=== PATIENT | male | born 1945 | race Caucasian/White ===

== ENCOUNTER 2021-12-05 12:06 | Outpatient (CLI) | payer MEDICARE, MEDICAID, SELFPAY ==
[2021-12-05 12:14] VITALS: BP 114/72; PULSE 61; RESP 20; TEMP 36.7; O2SAT 97; BMI 28.2
[2021-12-05 13:10] VITALS: BP 110/76; PULSE 53; RESP 18; TEMP 36.7; O2SAT 96
[2021-12-05 14:07] VITALS: BP 105/70; PULSE 60; RESP 17; TEMP 36.9; O2SAT 99
== END 2021-12-05 12:07 | disposition home or self-care (01) ==
LOC: OPS 12:12
PROVIDERS: PCP Family Medicine; Visit Provider Nurse Practitioner Family
DX: U07.1 COVID-19 (principal)
CPT/HCPCS: 96365

== ENCOUNTER → 2023-01-29 08:57 | Outpatient (BNVA) | payer MEDICARE, MEDICAID, SELFPAY | PROVIDERS: PCP Family Medicine; Visit Provider Podiatrist Foot & Ankle Surgery | DX: I73.9 Peripheral vascular disease, unspecified (principal); L60.3 Nail dystrophy; E11.42 Type 2 diabetes mellitus with diabetic polyneuropathy | CPT/HCPCS: 99203 ==

== ENCOUNTER → 2023-04-30 08:59 | Outpatient (BNVA) | payer MEDICARE, MEDICAID, SELFPAY | PROVIDERS: PCP Family Medicine; Visit Provider Podiatrist Foot & Ankle Surgery | DX: I73.9 Peripheral vascular disease, unspecified (principal); L60.3 Nail dystrophy; E11.42 Type 2 diabetes mellitus with diabetic polyneuropathy | CPT/HCPCS: 11721 ==

== ENCOUNTER → 2023-06-26 08:37 | Outpatient (BNVA) | payer MEDICARE, MEDICAID, SELFPAY | PROVIDERS: PCP Family Medicine; Visit Provider Specialist | DX: G24.01 Drug induced subacute dyskinesia; G81.94 Hemiplegia, unspecified affecting left nondominant side; F20.9 Schizophrenia, unspecified; F03.90 Unspecified dementia, unspecified severity, without behavioral disturbance, psychotic disturbance, mood disturbance, and anxiety; E11.42 Type 2 diabetes mellitus with diabetic polyneuropathy; R47.1 Dysarthria and anarthria; R26.89 Other abnormalities of gait and mobility | CPT/HCPCS: 99204 ==

== ENCOUNTER 2023-07-15 08:17 | Outpatient (CLI) | payer MEDICARE, MEDICAID, SELFPAY ==
--- NOTE | 2023-07-15 08:24 | CT_ITS ---
WS: [id number] CT HEAD TECHNIQUE: Noncontrast CT of the head obtained from the skullbase to the vertex. CLINICAL INFORMATION: SCHIZOPHRENIA/DRUG INDUCED SUBACUTE DYSKINESIA COMPARISON: 2019 DLP: 1196.[address] scans at [facility] use at least one of these dose optimization techniques: automated e xposure control; mA and/or kV adjustment per patient size (includes targeted exams where dose is matc hed to clinical indication); or iterative reconstruction. FINDINGS: No evidence of intracranial hemorrhage or mass effect. Ventricular system and basal cisterns are torrez nt. Moderate small vessel changes with moderate parenchymal volume loss. This has progressed compared to 2019. No extra-axial fluid collections. Extra-axial lesion at the LEFT parietal vertex measuring approximately 1.6 x 2.1 cm with mild associa rocky indentation on the underlying brain parenchyma suspicious for meningioma. This slightly abuts the sagittal sinus. This appears relatively stable compared to 2019. This could be further evaluated wit h MRI without and with gadolinium Mild mucosal thickening in the ethmoid air cells. Mastoid air cells are well aerated. Normal posterio r nasopharynx. IMPRESSION: 1. No evidence of intracranial hemorrhage or mass effect. 2. Moderate small vessel changes. Moderate parenchymal volume loss progressed compared to 2019 3. Suspected meningioma at the LEFT parietal vertex measuring 1.6 x 2.0 cm described above. 4. Intracranial vascular calcification.
== END 2023-07-15 08:18 | disposition home or self-care (01) ==
PROVIDERS: PCP Family Medicine; Visit Provider Internal Medicine
DX: F20.9 Schizophrenia, unspecified (principal); G24.9 Dystonia, unspecified
CPT/HCPCS: 70450

== ENCOUNTER → 2023-07-30 08:42 | Outpatient (BNVA) | payer MEDICARE, MEDICAID, SELFPAY | PROVIDERS: PCP Family Medicine; Visit Provider Podiatrist Foot & Ankle Surgery | DX: E11.42 Type 2 diabetes mellitus with diabetic polyneuropathy (principal); L60.3 Nail dystrophy; I73.9 Peripheral vascular disease, unspecified | CPT/HCPCS: 11721 ==

== ENCOUNTER 2023-09-13 15:08 | Emergency (ER) | payer MEDICARE, MEDICAID, SELFPAY ==
[2023-09-13 15:11] VITALS: BMI 28.2
[2023-09-13 15:21] VITALS: BP 122/67; PULSE 53; RESP 16; TEMP 36.8; O2SAT 99
--- NOTE | 2023-09-13 15:50 | XRR_ITS ---
PROCEDURE INFORMATION: Exam: XR Chest Exam date and time: 09/13/2023 3:57 PM Age: 77 years old Clinical indication: Shortness of breath; Additional info: SOB TECHNIQUE: Imaging protocol: Radiologic exam of the chest. Views: 1 view. COMPARISON: CR XR chest 1V [id number] 03/07/2019 12:27 AM FINDINGS: Lungs: No consolidative pulmonary infiltrates are noted. Pleural spaces: No pleural effusion. No pneumothorax. Heart/Mediastinum: No cardiomegaly noted. Calcified hilar and mediastinal lymph nodes consistent with old granulomatous disease. Bones/joints: Degenerative thoracic spine changes are noted. XR/XR chest 1V portable [id number] IMPRESSION: 1. No acute abnormality demonstrated. 2. Findings of old granulomatous disease are identified. 3. There is no interval change from the prior examination.
[2023-09-13 15:59] LABS: Basophils # 0.1 10^3/uL (0.0-0.1); Basophils % 0.7 %; Eosinophils # 0.1 10^3/uL (0.0-0.8); Eosinophils % 0.9 %; Hematocrit 41.6 % (37-53); Lymphocytes # 1.7 10^3/uL (0.8-4.8); Lymphocytes % 21.5 %; Mean Corpuscular HGB Conc 32.7 g/dL (30-55); Mean Corpuscular Hemoglobin 28.8 pg (27-33); Mean Corpuscular Volume 88.1 fl (82-101); Mean Platelet Volume 11.9 fL (7.4-10.4); Monocytes # 0.9 10^3/uL (0.2-0.9); Monocytes % 11.4 %; Neutrophils # 4.99 10^3/uL (1.8-7.7); Neutrophils % 65.1 %; Nucleated Red Blood Cells % 0 %; Platelet Count 172 10^3/cmm (157-399); Red Blood Count 4.72 10^6/uL (3.85-5.65); Red Cell Distribution Width 13.6 % (12.1-15.1); White Blood Count 7.66 10^3/uL (3.29-11.43)
--- NOTE | 2023-09-13 16:13 | ECG_ITS ---
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 Measurements Intervals [place] Rate: 53 P: 0 VT: 0 QRS: 56 QRSD: 94 T: 45 QT: 449 QTc: 422 Interpretive Statements SUPRAVENTRICULAR BRADYCARDIA LOW QRS VOLTAGE IN PRECORDIAL LEADS [QRS DEFLECTION < 1.0 mV IN CHEST LEADS] Compared to ECG 03/06/2019 19:40:21 Low QRS voltage now present Sinus rhythm no longer present Electronically Signed On 09-13-2023 23:08:25 CDT by Pete Rizvi M.D. [id number]
[2023-09-13 16:19] LABS: INR 1.17 (0.8-1.2); Partial Thromboplastin Time 33.6 SECONDS (23.9-36.7)
[2023-09-13 16:21] LABS: ABG PCO2 42.3 mmHg (35-45); ABG PH Result 7.39 (7.35-7.45); Arterial Blood Gas Hematocrit 40.6 % (42-52); Base Excess ABG 0.7 mmol/L (-2.0-2.0); Blood Gas Allen Test Pos; Blood Gas Operator Identificat CAK; Blood Gas Sample Site Radial, left; Blood Gas Sample Type Arterial; HCO3 ABG 25.8 mmol/L (22-26); Oxygen Device NC
[2023-09-13 16:24] VITALS: BP 122/67; PULSE 54; RESP 22; O2SAT 98
--- NOTE | 2023-09-13 16:32 | W.ED.SOB ---
HPI - SOB/Dyspnea General: Chief Complaint: Shortness of Breath/Dyspnea Stated Complaint: covid + Time Seen by Provider: 09/13/23 15:24 History of Present Illness: HPI Narrative: 77-year-old male presents the emergency department chief complaint of generalized confusion with increased shortness of breath. He presents from the [facility] to the ER for further assessment and management. Patient is a longstanding history of lung issues you are a normally requires oxygen mentation via nasal cannula. Patient apparently was found to be post-COVID positive today in which she was sent in for further evaluation patient does have a known history of previous stroke with left-sided deficits as well as schizophrenia. As noted per his documentation provided with him the patient upon direct questioning does not remark any pains or discomfort reports no increased shortness of breath or palpitations with no other associated symptoms however on exam patient does appear to be a very poor historian. Associated symptoms: Deny abdominal pain, chest pain, extremity pain, fever(s), nausea, palpitations or vomiting Review of Systems General: Reports: 10 or more systems reviewed and unremarkable except in HPI and below Const: Denies: fever(s) or chills Eyes: Denies: change in vision or blurry vision Card: Denies: chest pain or palpitations Resp: Denies: productive cough GI: Denies: abdominal pain, nausea or vomiting : Denies: flank pain Musc: Denies: extremity pain or extremity swelling Skin/Breast: Denies: rash or pruritus Neuro: Denies: headache(s) Psych: Denies: anxiety or depression Pernell/Lymph: Denies: easy bleeding All/Imm: Denies: urticaria, throat swelling or facial swelling Course Vital Signs: Vital signs: Vital Signs Temperature 98.2 F 09/13/23 15:21 Pulse Rate 65 09/13/23 17:42 Respiratory Rate 22 H 09/13/23 17:42 Blood Pressure 133/85 09/13/23 17:42 Pulse Oximetry 97 09/13/23 17:42 Oxygen Delivery Me thod Nasal Cannula 09/13/23 15:21 Oxygen Flow Rate 2 09/13/23 15:21 MDM - SOB/Dyspnea Medical Decision Making Due to patient's symptoms and condition lab work and imaging will be obtained we will continue to follow. Patient's lab work and imaging came back reassuring no obvious signs suggestive of heart failure or pneumonia no additional oxygen requirement was also appreciated which patient appears to be at his baseline confusion with no additional focal neurodeficits patient was able to ambulate with which is at his baseline which is oxygenation continue to remain in the mid 90s in which patient did not get progressively dyspneic his heart enzymes are normal we will be treating him with Paxlofrida outpatient as well as steroids and nebs advised further follow-up with primary care in 2 to 3 days advised to try to isolate the patient with next 5 days in the patient facility was advised to bring the patient in if any of his symptoms persist or worse. Lab Data 09/13/23 15:00 09/13/23 15:00 Labs/Radiology: Radiology Impressions Chest X-Ray 09/13/23 15:50 IMPRESSION: 1. No acute abnormality demonstrated. 2. Findings of old granulomatous disease are identified. 3. There is no interval change from the prior examination. Laboratory Results WBC 7.66 10^3/uL (3.29-11.43) 09/13/23 15:00 RBC 4.72 10^6/uL (3.85-5.65) 09/13/23 15:00 Hgb 13.60 g/dL (11.27-16.99) 09/13/23 15:00 Hct 41.6 % (37-53) 09/13/23 15:00 MCV 88.1 fl (82-101) 09/13/23 15:00 MCH 28.8 pg (27-33) 09/13/23 15:00 MCHC 32.7 g/dL (30-55) 09/13/23 15:00 RDW 13.6 % (12.1-15.1) 09/13/23 15:00 Plt Count 172 10^3/cmm (157-399) 09/13/23 15:00 MPV 11.9 fL (7.4-10.4) H 09/13/23 15:00 Neut % (Auto) 65.1 % 09/13/23 15:00 Lymph % (Auto) 21.5 % 09/13/23 15:00 [place] % (Auto) 11.4 % 09/13/23 15:00 Eos % (Auto) 0.9 % 09/13/23 15:00 Baso % (Auto) 0.7 % 09/13/23 15:00 Neut # (Auto) 4.99 10^3/uL (1.8-7.7) 09/13/23 15:00 Lymph # (Auto) 1.7 10^3/uL (0.8-4.8) 09/13/23 15:00 [place] # (Auto) 0.9 10^3/uL (0.2-0.9) 09/13/23 15:00 Eos # (Auto) 0.1 10^3/uL (0.0-0.8) 09/13/23 15:00 Baso # (Auto) 0.1 10^3/uL (0.0-0.1) 09/13/23 15:00 Nucleated RBC % (auto) 0 % 09/13/23 15:00 Nucleated RBCs # 0.0 /100WBC 09/13/23 15:00 PT 15.30 SECONDS (12.1-14.9) H 09/13/23 15:00 INR 1.17 (0.8-1.2) 09/13/23 15:00 APTT 33.6 SECONDS (23.9-36.7) 09/13/23 15:00 Specimen Type Arterial 09/13/23 16:10 Sample Site Radial, left 09/13/23 16:10 ABG pH 7.39 (7.35-7.45) 09/13/23 16:10 ABG pCO2 42.3 mmHg (35-45) 09/13/23 16:10 ABG pO2 119.0 mmHg (80.0-100.0) H 09/13/23 16:10 ABG HCO3 25.8 mmol/L (22-26) 09/13/23 16:10 ABG Base Excess 0.7 mmol/L (-2.0-2.0) 09/13/23 16:10 Arvind Test Pos 09/13/23 16:10 Hematocrit 40.6 % (42-52) L 09/13/23 16:10 O2 Delivery Device Nc 09/13/23 16:10 O2 Liters/Min 2.0 % 09/13/23 16:10 FiO2 28.0 % 09/13/23 16:10 Laundry Equipment Operator ID Cak 09/13/23 16:10 Sodium 136 mmol/L (136-145) 09/13/23 15:00 Potassium 4.3 mmol/L (3.5-5.1) 09/13/23 15:00 Chloride 103 mmol/L (98-107) 09/13/23 15:00 Carbon Dioxide 24 mmol/L (22-29) 09/13/23 15:00 Anion Gap 13.3 (5-19) 09/13/23 15:00 BUN 15 mg/dL (8-23) 09/13/23 15:00 Creatinine 0.7 mg/dL (0.7-1.2) 09/13/23 15:00 GFR Calculation Not Reportable 09/13/23 15:00 Glucose 99 mg/dL (65-115) 09/13/23 15:00 Calculated Osmolality 283 mOsm/kg (285-295) L 09/13/23 15:00 Lactic Acid 1.1 mmol/L (0.5-2.2) 09/13/23 16:57 Calcium 8.4 mg/dL (8.5-10.5) L 09/13/23 15:00 Total Bilirubin 0.6 mg/dL (0.15-1.2) 09/13/23 15:00 AST 17 U/L (0-40) 09/13/23 15:00 ALT 7 U/L (0-41) 09/13/23 15:00 Alkaline Phosphatase 73 U/L (40-130) 09/13/23 15:00 C-Reactive Protein 33.3 mg/L (0.0-4.9) H 09/13/23 15:00 NT-Pro-B Natriuret Pep 697 pg/mL (0-450) H 09/13/23 15:00 Total Protein 5.6 g/dL (6.6-8.7) L 09/13/23 15:00 Albumin 3.1 g/dL (3.5-5.2) L 09/13/23 15:00 Globulin 2.5 g/dL (1.3-4.6) 09/13/23 15:00 All radiology interpretation(s) finalized by discharge Discharge Plan Discharge Patient Disposition: Home Clinical Impression: COVID, Breath shortness Condition: Stable Prescriptions: New Paxlovid 300 mg (150 mg x 2)-100 mg tablets,dose pack See Rx Instructions .ROUTE .COMPLEX Qty: 30 0RF Rx Instructions: take TWO 150 mg tablets of nirmatrelvir with ONE 100 mg tablet of ritonavir twice daily for 5 days prednisone 20 mg tablet 20 mg PO DAILY Qty: 7 0RF Ventolin HFA 90 mcg/actuation HFA aerosol inhaler 1 inh inhalation Q6H PRN (Reason: shortness of breath or wheezing) Qty: 6.7 0RF No Action Risperdal Consta 25 mg/2 mL suspension,extended rel recon IM propranolol 40 mg tablet PO atorvastatin 10 mg tablet PO divalproex 125 mg tablet,delayed release (DR/EC) PO Discharge Orders: Discharge ED (Routine); Ordered 09/13/23 Ordered By: Kurt Vargas Referrals: Miguel Kebede Jr, MD [Primary Care Provider] - 1-3 days Discharge Diet: Advance as tolerated Discharge Activity: Resume usual activity and Increase activity as tolerated Patient Instructions: Nirmatrelvir/Ritonavir (By mouth) (Paxlovid), COVID-19 (Coronavirus Disease 2019) (ED) Activity Restrictions/Additional Instructions: Please further follow-up with your primary care doctor in the next 2 to 3 days please try to self isolate as best as possible over the next 5 days from initiation of your symptoms in which please return the interim if any of your symptoms persist or worse Coding Level of Care Code ED [employer] for Dilan Lucia
[2023-09-13 16:38] LABS: Albumin Level 3.1 g/dL (3.5-5.2); Alkaline Phosphatase 73 U/L (40-130); Blood Urea Nitrogen 15 mg/dL (8-23); C Reactive Protein 33.3 mg/L (0.0-4.9); Calcium 8.4 mg/dL (8.5-10.5); Carbon Dioxide 24 mmol/L (22-29); Chloride 103 mmol/L (98-107); Globulin 2.5 g/dL (1.3-4.6); Glucose 99 mg/dL (65-115); NT Pro B Type Natriuretic Pept 697 pg/mL (0-450); Osmolality Calculated 283 mOsm/kg (285-295); Sodium 136 mmol/L (136-145); Total Bilirubin 0.6 mg/dL (0.15-1.2); Total Protein 5.6 g/dL (6.6-8.7)
[2023-09-13 16:40] LABS: Anion Gap 13.3 (5-19); Aspartate Amino Transferase 17 U/L (0-40); Potassium 4.3 mmol/L (3.5-5.1)
[2023-09-13 16:41] LABS: Alanine Aminotransferase 7 U/L (0-41)
[2023-09-13 17:29] LABS: Lactic Sepsis W/Reflex 1.1 mmol/L (0.5-2.2)
[2023-09-13 17:42] VITALS: BP 133/85; PULSE 65; RESP 22; O2SAT 97
[2023-09-13 19:31] VITALS: BP 117/54
== END 2023-09-13 19:40 | disposition home or self-care (01) ==
PROVIDERS: Emergency Provider Emergency Medicine; PCP Family Medicine
DX: U07.1 COVID-19 (principal)
CPT/HCPCS: 36415; 36600; 71045; 80053; 82803; 83605; 83880; 85025; 85610; 85730; 86140; 93005; 99285

== ENCOUNTER → 2023-10-09 10:18 | Outpatient (BNVA) | payer MEDICARE, MEDICAID, SELFPAY | PROVIDERS: PCP Family Medicine; Visit Provider Specialist | DX: G81.14 Spastic hemiplegia affecting left nondominant side (principal); G24.01 Drug induced subacute dyskinesia | CPT/HCPCS: 99214 ==

== ENCOUNTER → 2024-01-15 14:32 | Outpatient (BNVA) | payer MEDICARE, MEDICAID, SELFPAY | PROVIDERS: PCP Family Medicine; Visit Provider Specialist | DX: R29.90 Unspecified symptoms and signs involving the nervous system (principal); G81.14 Spastic hemiplegia affecting left nondominant side; G24.01 Drug induced subacute dyskinesia; F20.9 Schizophrenia, unspecified | CPT/HCPCS: 99214 ==

== ENCOUNTER 2025-02-26 05:57 | Emergency (ER) | payer MEDICARE, MEDICAID, SELFPAY ==
[2025-02-26] VITALS (13 sets, daily range): BP systolic 73–108; BP diastolic 43–55; PULSE 63–96; RESP 10–20; TEMP 36.8; O2SAT 91–97; BMI 25.7
--- NOTE | 2025-02-26 06:08 | ECG_ITS ---
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 Measurements Intervals [place] Rate: 94 P: 53 NE: 153 QRS: 58 QRSD: 94 T: 61 QT: 349 QTc: 437 Interpretive Statements SINUS RHYTHM LOW QRS VOLTAGE IN EXTREMITY LEADS [QRS DEFLECTION < 0.5 mV IN LIMB LEADS] Compared to ECG 09/13/2023 16:13:15 No significant changes Electronically Signed On 02-27-2025 18:16:50 CDT by Pete Rizvi M.D. [id number] [id number]
--- NOTE | 2025-02-26 06:08 | CTR_ITS ---
PROCEDURE INFORMATION: Exam: CT Head Without Contrast Exam date and time: 02/26/2025 6:16 AM Age: 79 years old Clinical indication: Altered mental status/memory loss; Additional info: Altered mental status, history of parkinson's, history of st TECHNIQUE: Imaging protocol: Computed tomography of the head without contrast. Radiation optimization: All CT scans at this facility use at least one of these dose optimization techniques: automated exposure control; mA and/or kV adjustment per patient size (includes targeted exams where dose is matched to clinical indication); or iterative reconstruction. COMPARISON: CT head wo con* [id number] 07/15/2023 8:37 AM RADIATION DOSE METRICS: Total DLP (mGy-cm): 1259.98 FINDINGS: Brain: No hemorrhage. Periventricular white matter lucency represents atherosclerotic encephalopathic changes. Cerebral ventricles: No ventriculomegaly. Ventricular prominence proportionate to the degree of atrophy observed. Paranasal sinuses: Visualized sinuses are unremarkable. No fluid levels. Mastoid air cells: Visualized mastoid air cells are well aerated. Bones: Unremarkable. No acute fracture. Soft tissues: Unremarkable. Other findings: No mass effect. CT/CT head wo con* [id number] IMPRESSION: No acute intracranial abnormality.
--- NOTE | 2025-02-26 06:08 | W.ED.SOB ---
HPI - SOB/Dyspnea General: Chief Complaint: Shortness of Breath/Dyspnea Stated Complaint: Poss Sepsis Time Seen by Provider: 02/26/25 05:58 History of Present Illness: HPI Narrative: 79-year-old male presents to the emergency room essentially the patient is obtunded he has no response to verbal or painful stimuli. Patient has a history of schizophrenia he also has a history of Parkinson's and a previous stroke. He has contractures and residual left-sided hemiparesis. Nursing on report was that he is altered this morning he usually is somewhat responsive and normally does speak. He normally is not on oxygen at the intermediate and is satting normal on room air at this time Related Data Home Medications ?Medication ?Instructions ?Recorded ?Confirmed acetaminophen 325 mg tablet 650 mg PO Q6H PRN Pain 02/26/25 02/26/25 amino acids-protein hydrolysate 15 30 ea PO TID 02/26/25 02/26/25 gram-101 kcal/30 mL oral liquid bisacodyl 10 mg rectal suppository 10 mg RI DAILY PRN Constipation 02/26/25 02/26/25 dextran 70-hypromellose eye drops 1 drp ophthalmic (eye) Q4H 02/26/25 02/26/25 magnesium hydroxide 400 mg/5 mL 30 ml PO DAILY PRN Constipation 02/26/25 02/26/25 oral suspension (Milk of Magnesia) menthol 4 % topical gel (Biofreeze 1 applic topical BID 02/26/25 02/26/25 (menthol)) polyethylene glycol 3350 17 17 g PO DAILY 02/26/25 02/26/25 gram/dose oral powder (Miralax) risperidone 1 mg tablet 1 mg PO BID 02/26/25 02/26/25 sennosides 8.6 mg-docusate sodium 1 tab-cap PO BID PRN Constipation 02/26/25 02/26/25 50 mg tablet (Stool Softener-Laxative) sodium phosphates 19 gram-7 118 ml RI DAILY PRN Constipation 02/26/25 02/26/25 gram/118 mL enema (Enema) Allergies Allergy/AdvReac Type Severity Reaction Status Date / Time No Known Allergies Allergy Verified 01/15/24 14:45 Review of Systems General: Reports: ROS unobtainable due to mental status [facility] ED PFSH: Medical History (Updated 02/26/25 @ 12:54 by Adam Vigil DO) Diabetic peripheral neuropathy associated with type 2 diabetes mellitus Dementia Spastic hemiparesis of left nondominant side Schizophrenia Peripheral arterial disease Left hemiparesis Tardive dyskinesia Physical Exam HENMT: COMMON NORMALS: normocephalic and atraumatic HEAD & SCALP: normocephalic and atraumatic Resp: COMMON NORMALS: normal respiratory effort, No retractions, No use of accessory muscles and clear to auscultation bilaterally AUSCULTATION: clear to auscultation bilaterally Cardio: COMMON NORMALS: regular rate, regular rhythm and No murmurs present (Cardio) RATE: regular rate RHYTHM: regular rhythm GI: COMMON NORMALS: Soft to palpation and No hepatosplenomegaly present AUSCULTATION: Yes normoactive bowel sounds PALPATION: Yes Soft to palpation, No Tenderness to palpation present (GI), No Guarding due to palpation present (GI) and Yes No hepatosplenomegaly present Extremity: COMMON NORMALS: normal to inspection, capillary refill normal, no clubbing, cyanosis or edema, no calf tenderness and no pedal edema Skin: COMMON NORMALS: no rashes or lesions noted GENERAL SKIN EXAM: no rashes or lesions noted Course Vital Signs: Vital signs: Vital Signs Temperature 98.3 F 02/26/25 06:10 Pulse Rate 63 02/26/25 12:00 Respiratory Rate 10 L 02/26/25 12:00 Blood Pressure 97/52 02/26/25 12:00 Pulse Oximetry 97 02/26/25 12:00 Oxygen Delivery Me thod Room Air 02/26/25 06:38 MDM - SOB/Dyspnea Medical Decision Making Patient responsive groans to noxious stimuli but no words. His sats are normal and his breathing is not compromised. His blood pressure did dip into the 70s and 80s systolic at times he was titrated on Levophed. He is already received a sepsis fluid bolus. He has been started on Levophed and we are titrating up. He is also been given antibiotics. There are no old cultures to guide antibiotic selection at this time so started on Zosyn. We do not have urology at our facility we discussed with Dr. Christopher urologist at [facility] they will accept patient on transfer Dr. Dr. Cordon the hospitalist. He will be transferred via EMS to ICU at [place]. Medical Records I reviewed the patient's medical records. Lab Data I reviewed the patient's lab results. 02/26/25 05:59 02/26/25 05:59 Labs/Radiology: Radiology Impressions Head CT 02/26/25 06:08 IMPRESSION: No acute intracranial abnormality. Abdomen/Pelvis CT 02/26/25 06:20 IMPRESSION: 1. 13 x 5 mm stone at the right ureteropelvic junction causes mild hydronephrosis. There are additional nonobstructive bilateral renal stones. 2. Findings suggesting mild enteritis or ileus. Laboratory Results WBC 13.89 10^3/uL (3.29-11.43) H 02/26/25 05:59 RBC 4.88 10^6/uL (3.85-5.65) 02/26/25 05:59 Hgb 13.90 g/dL (11.27-16.99) 02/26/25 05:59 Hct 42.8 % (37-53) 02/26/25 05:59 MCV 87.7 fl (82-101) 02/26/25 05:59 MCH 28.5 pg (27-33) 02/26/25 05:59 MCHC 32.5 g/dL (30-55) 02/26/25 05:59 RDW 13.9 % (12.1-15.1) 02/26/25 05:59 Plt Count 168 10^3/cmm (157-399) 02/26/25 05:59 MPV 12.4 fL (7.4-10.4) H 02/26/25 05:59 Neut % (Auto) 93.3 % 02/26/25 05:59 Lymph % (Auto) 2.6 % 02/26/25 05:59 [place] % (Auto) 3.2 % 02/26/25 05:59 Eos % (Auto) 0.0 % 02/26/25 05:59 Baso % (Auto) 0.3 % 02/26/25 05:59 Neut # (Auto) 12.97 10^3/uL (1.8-7.7) H 02/26/25 05:59 Lymph # (Auto) 0.4 10^3/uL (0.8-4.8) L 02/26/25 05:59 [place] # (Auto) 0.4 10^3/uL (0.2-0.9) 02/26/25 05:59 Eos # (Auto) 0.0 10^3/uL (0.0-0.8) 02/26/25 05:59 Baso # (Auto) 0.0 10^3/uL (0.0-0.1) 02/26/25 05:59 Nucleated RBC % (auto) 0 % 02/26/25 05:59 Nucleated RBCs # 0.0 /100WBC 02/26/25 05:59 Specimen Type Arterial 02/26/25 06:40 Sample Site Radial, right 02/26/25 06:40 ABG pH 7.45 (7.35-7.45) 02/26/25 06:40 ABG pCO2 37.4 mmHg (35-45) 02/26/25 06:40 ABG pO2 59.5 mmHg (80.0-100.0) L 02/26/25 06:40 ABG PO2/FiO2 Ratio 283 02/26/25 06:40 ABG HCO3 26.0 mmol/L (22-26) 02/26/25 06:40 ABG O2 Saturation 93.9 02/26/25 06:40 ABG Base Excess 2.1 mmol/L (-2.0-2.0) H 02/26/25 06:40 Arvind Test Pos 02/26/25 06:40 A-a O2 Gradient 5.7 mmHg (5-10) 02/26/25 06:40 Hematocrit 41.2 % (42-52) L 02/26/25 06:40 Hgb O2 Saturation 91.8 % (95-100) L 02/26/25 06:40 Carboxyhemoglobin 1.5 %THgb (0.4-20.1) 02/26/25 06:40 Methemoglobin 0.8 % (0.4-1.5) 02/26/25 06:40 Total Hemoglobin 13.4 g/dL (14-18) L 02/26/25 06:40 Sodium 140.0 mmol/L (131-143) 02/26/25 06:40 Potassium 3.5 mmol/L (3.5-5.0) 02/26/25 06:40 Glucose 131.0 mg/dL (70-115) H 02/26/25 06:40 Ionized Calcium 1.2 mmol/L (1.1-1.4) 02/26/25 06:40 O2 Delivery Device Room air 02/26/25 06:40 FiO2 21.0 % 02/26/25 06:40 Preservative Filler Machine Operator ID [email or web address] 02/26/25 06:40 Sodium 139 mmol/L (136-145) 02/26/25 05:59 Potassium 4.0 mmol/L (3.5-5.1) 02/26/25 05:59 Chloride 103 mmol/L (98-107) 02/26/25 05:59 Carbon Dioxide 25 mmol/L (22-29) 02/26/25 05:59 Anion Gap 15.0 (5-19) 02/26/25 05:59 BUN 22 mg/dL (8-23) 02/26/25 05:59 Creatinine 1.1 mg/dL (0.7-1.2) 02/26/25 05:59 GFR Calculation Not Reportable 02/26/25 05:59 Glucose 131 mg/dL (65-115) H 02/26/25 05:59 Calculated Osmolality 293 mOsm/kg (285-295) 02/26/25 05:59 Lactic Acid 2.6 mmol/L (0.5-2.2) H 02/26/25 05:59 Lactic Acid (Sepsis) 1.4 mmol/L (0.5-2.2) 02/26/25 08:19 Calcium 8.5 mg/dL (8.5-10.5) 02/26/25 05:59 Total Bilirubin 1.0 mg/dL (0.15-1.2) 02/26/25 05:59 AST 13 U/L (0-40) 02/26/25 05:59 ALT 9 U/L (0-41) 02/26/25 05:59 Alkaline Phosphatase 86 U/L (40-130) 02/26/25 05:59 Troponin T Baseline 77 ng/L (0-15) H 02/26/25 05:59 Troponin T 120 Minute 59.65 ng/L (0-15) H 02/26/25 08:19 Delta Troponin T -17.35 ABS# (0-10) L 02/26/25 08:19 Troponin T Hi Sens 6Hr 62.19 ng/L (0-15) H 02/26/25 11:51 Troponin T Hi Sens 6Hr Delta -14.81 ng/L (0-12) L 02/26/25 11:51 Total Protein 6.3 g/dL (6.6-8.7) L 02/26/25 05:59 Albumin 3.3 g/dL (3.5-5.2) L 02/26/25 05:59 Globulin 3.0 g/dL (1.3-4.6) 02/26/25 05:59 Lipase 13 U/L (13-60) 02/26/25 05:59 Urine Color Yellow (Yellow) 02/26/25 06:06 Urine Appearance Cloudy (CLEAR) A 02/26/25 06:06 Urine pH 8 (5-7) A 02/26/25 06:06 Ur Specific [place] 1.010 (1.005-1.030) 02/26/25 06:06 Urine Protein Neg (Negative) 02/26/25 06:06 Urine Glucose (UA) Norm (Normal) 02/26/25 06:06 Urine Ketones Negative (Negative) 02/26/25 06:06 Urine Blood 2+ (Negative) H 02/26/25 06:06 Urine Nitrate Positive (Negative) A 02/26/25 06:06 Urine Bilirubin Neg (Negative) 02/26/25 06:06 Urine Urobilinogen 1 mg/dL (Negative) H 02/26/25 06:06 Ur Leukocyte Esterase 2+ (Negative) H 02/26/25 06:06 Urine RBC 6-10 /hpf (0-2) 02/26/25 06:06 Urine WBC 51-100 /hpf (0-5) H 02/26/25 06:06 Ur Squamous Epith Cells 0-5 /hpf (0-5) 02/26/25 06:06 Amorphous Sediment Not Reportable 02/26/25 06:06 Urine Bacteria 4+ /hpf (NONE) H 02/26/25 06:06 Hyaline Casts 122.46 /lpf 02/26/25 06:06 Influenza A (PCR) Negative (Negative) 02/26/25 06:00 Influenza Type B (PCR) Negative (Negative) 02/26/25 06:00 RSV (PCR) Negative (Negative) 02/26/25 06:00 SARS-CoV-2 (PCR) Negative (Negative) 02/26/25 06:00 All radiology interpretation(s) finalized by discharge Discharge Plan Discharge Patient Disposition: Admitted As Inpatient Clinical Impression: Diabetic peripheral neuropathy associated with type 2 diabetes mellitus, Tardive dyskinesia, Schizophrenia, Spastic hemiparesis of left nondominant side, Obstructive pyelonephritis, Septic shock Condition: Stable Prescriptions: No Action acetaminophen 325 mg Tablet 650 mg PO Q6H PRN (Reason: Pain) sennosides-docusate sodium [Stool Softener-Laxative] 8.6-50 mg Tablet 1 tab-cap PO BID PRN (Reason: Constipation) magnesium hydroxide [Milk of Magnesia] 400 mg/5 mL Suspension 30 ml PO DAILY PRN (Reason: Constipation) bisacodyl [Biscolax] 10 mg Suppository 10 mg RI DAILY PRN (Reason: Constipation) Enema 19-7 gram/118 mL Enema 118 ml RI DAILY PRN (Reason: Constipation) polyethylene glycol 3350 [Miralax] 17 gram/dose Powder 17 g PO DAILY risperidone 1 mg tablet 1 mg PO BID Tears Naturale Drops 1 drp OPHTHALMIC (EYE) Q4H Pro-Stat 101 15-101 gram-kcal/30 mL Liquid 30 ea PO TID Biofreeze (menthol) 4 % Gel 1 applic TOPICAL BID Referrals: Miguel Kebede Jr, MD [Primary Care Provider] - Patient Instructions: Opioid Safety, Pain Management Print Language: Vincentian Coding Level of Care Code ED Powder Core Tester for Dilan Lucia
[2025-02-26 06:09] LABS: Basophils % 0.3 %; Hematocrit 42.8 % (37-53); Lymphocytes # 0.4 10^3/uL (0.8-4.8); Lymphocytes % 2.6 %; Mean Corpuscular HGB Conc 32.5 g/dL (30-55); Mean Corpuscular Hemoglobin 28.5 pg (27-33); Mean Corpuscular Volume 87.7 fl (82-101); Mean Platelet Volume 12.4 fL (7.4-10.4); Monocytes # 0.4 10^3/uL (0.2-0.9); Monocytes % 3.2 %; Neutrophils # 12.97 10^3/uL (1.8-7.7); Neutrophils % 93.3 %; Nucleated Red Blood Cells % 0 %; Platelet Count 168 10^3/cmm (157-399); Red Blood Count 4.88 10^6/uL (3.85-5.65); Red Cell Distribution Width 13.9 % (12.1-15.1); White Blood Count 13.89 10^3/uL (3.29-11.43)
[2025-02-26 06:20] LABS: Bacteria Urine 4+ /hpf; Hyaline Casts Urine 122.46 /lpf; Squamous Epithelial Cell Urine 0-5 /hpf (0-5); WBC Urine 51-100 /hpf (0-5)
--- NOTE | 2025-02-26 06:20 | CTR_ITS ---
PROCEDURE INFORMATION: Exam: CT Abdomen And Pelvis Without Contrast Exam date and time: 02/26/2025 6:19 AM Age: 79 years old Clinical indication: Abdominal pain TECHNIQUE: Imaging protocol: Computed tomography of the abdomen and pelvis without contrast. Radiation optimization: All CT scans at this facility use at least one of these dose optimization techniques: automated exposure control; mA and/or kV adjustment per patient size (includes targeted exams where dose is matched to clinical indication); or iterative reconstruction. COMPARISON: CR XR chest 1V portable [id number] 09/13/2023 3:57 PM RADIATION DOSE METRICS: Total DLP (mGy-cm): 966.73 FINDINGS: Limitations: The patient was scanned with their arms at their side creating streak and beam hardening artifact which limits evaluation. Pleural spaces: Small bilateral pleural effusions. Heart: There is mild cardiomegaly. Coronary arteries: There is atherosclerotic calcification coronary arteries. Liver: Normal. No mass. Gallbladder and biliary ducts: Gallstones are noted. Pancreas: Normal. No ductal dilation. Spleen: Benign splenic granulomas noted. Adrenal glands: Normal. No mass. Kidneys and ureters: There are nonobstructive renal stones. 13 x 5 mm stone at the right ureteropelvic junction causes mild hydronephrosis. There is nonspecific perinephric stranding. Stomach and bowel: Mild nonspecific circumferential rectal wall thickening. There are mildly prominent small bowel loops throughout the abdomen with air-fluid levels suggesting mild enteritis. There are mildly prominent small bowel loops throughout the abdomen with air-fluid levels and fecalized bowel content suggesting mild enteritis or ileus. Appendix: No evidence of appendicitis. Intraperitoneal space: Unremarkable. No free air. No significant fluid collection. Vasculature: Calcified atherosclerotic plaque noted. Lymph nodes: Unremarkable. No enlarged lymph nodes. Urinary bladder: Unremarkable as visualized. Reproductive: Unremarkable as visualized. Bones/joints: Unremarkable. No acute fracture. Soft tissues: Unremarkable. CT/CT abdomen pelvis wo con 10008 IMPRESSION: 1. 13 x 5 mm stone at the right ureteropelvic junction causes mild hydronephrosis. There are additional nonobstructive bilateral renal stones. 2. Findings suggesting mild enteritis or ileus.
[2025-02-26 06:28] LABS: Troponin(5th) Baseline 77 ng/L (0-15)
[2025-02-26 06:31] LABS: Alanine Aminotransferase 9 U/L (0-41); Albumin Level 3.3 g/dL (3.5-5.2); Alkaline Phosphatase 86 U/L (40-130); Aspartate Amino Transferase 13 U/L (0-40); Blood Urea Nitrogen 22 mg/dL (8-23); Calcium 8.5 mg/dL (8.5-10.5); Carbon Dioxide 25 mmol/L (22-29); Chloride 103 mmol/L (98-107); Creatinine Clr Calc Pharmacy 64.8539; Glucose 131 mg/dL (65-115); Lipase 13 U/L (13-60); Osmolality Calculated 293 mOsm/kg (285-295); Sodium 139 mmol/L (136-145); Total Protein 6.3 g/dL (6.6-8.7)
[2025-02-26 06:45] LABS: Lactic Sepsis W/Reflex 2.6 mmol/L (0.5-2.2)
[2025-02-26 06:52] LABS: ABG PCO2 37.4 mmHg (35-45); ABG PH Result 7.45 (7.35-7.45); Alveolar-Arterial Oxygen Gradi 5.7 mmHg (5-10); Arterial Blood Gas Hematocrit 41.2 % (42-52); Base Excess ABG 2.1 mmol/L (-2.0-2.0); Blood Gas Allen Test Pos; Blood Gas Operator Identificat gerca; Blood Gas Sample Site Radial, right; Blood Gas Sample Type Arterial; Carboxyhemoglobin 1.5 %THgb (0.4-20.1); HGB O2 Sat 91.8 % (95-100); Ionized Calcium Level - ABG 1.2 mmol/L (1.1-1.4); Methemoglobin 0.8 % (0.4-1.5); Oxygen Device ROOM AIR; Oxygen Saturation ABG 93.9; PO2 ABG 59.5 mmHg (80.0-100.0); PO2 FiO2 Ratio Arterial Blood 283; Potassium Level - ABG 3.5 mmol/L (3.5-5.0); Total Hemoglobin 13.4 g/dL (14-18)
[2025-02-26 06:57] LABS: Influenza A NEGATIVE (Negative); Influenza B NEGATIVE (Negative); Respiratory Syncytial Virus Ce NEGATIVE (Negative); SARS-CoV-2 PCR NEGATIVE (Negative)
[2025-02-26] MEDS: piperacillin-tazobactam 3.375 GM in sodium chloride 0.9% (plus) 50 ML IV (06:59)
[2025-02-26 07:01] LABS: Protein Urine Neg (Negative); Urine Appearance Cloudy (CLEAR); Urine Color Yellow (Yellow); pH Urine 8 (5-7)
[2025-02-26 07:02] LABS: Add Urine Culture? Yes; Add Urine Microscopic? YES; Bilirubin Urine Neg (Negative); Blood Urine 2+ (Negative); Glucose Urine UA Norm (Normal); Ketones Urine Negative (Negative); Leukocyte Esterase Urine 2+ (Negative); Nitrate Urine Positive (Negative); UA Slide Review UA Slide Review Perf; Urobilinogen Urine 1 mg/dL (Negative)
[2025-02-26] MEDS: sodium chloride 0.9% 2,721.54 ML 2721.54 ML IV (07:03)
[2025-02-26 07:18] LABS: Reflex Lactate Order REFLEX LACTIC ORDERD
--- NOTE | 2025-02-26 07:24 | PC.PHAR ---
patient is from [facility], MAR in chart
--- NOTE | 2025-02-26 08:08 | ECG_ITS ---
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
[2025-02-26 08:49] LABS: Troponin 5 2HR 59.65 ng/L (0-15)
[2025-02-26 08:50] LABS: Troponin 5 2HR Delta -17.35 ABS# (0-10)
[2025-02-26 08:51] LABS: Lactic Acid level (Lactate) 1.4 mmol/L (0.5-2.2)
[2025-02-26] MEDS: norepinephrine 4 MG/250 ML BAG 7.5 MG IV (11:31)
[2025-02-26] MEDS: dextrose 5%-sod chloride 0.45% 1,000 ML 150 ML IV (11:33)
[2025-02-26 12:21] LABS: Troponin 5 6HR 62.19 ng/L (0-15)
[2025-02-26 12:23] LABS: Troponin 5 6HR Delta -14.81 ng/L (0-12)
--- NOTE | 2025-02-27 02:06 | PC.NURSE ---
Positive blood cultures called to [facility].
== END 2025-02-26 12:55 | disposition short-term general hospital (02) ==
PROVIDERS: Emergency Provider Family Medicine; PCP Family Medicine
DX: E11.42 Type 2 diabetes mellitus with diabetic polyneuropathy (principal); G24.01 Drug induced subacute dyskinesia; F20.9 Schizophrenia, unspecified; G81.14 Spastic hemiplegia affecting left nondominant side; N12 Tubulo-interstitial nephritis, not specified as acute or chronic; A41.9 Sepsis, unspecified organism; R65.21 Severe sepsis with septic shock; Z11.52 Encounter for screening for COVID-19
CPT/HCPCS: 36415; 36600; 70450; 74176; 80051; 80053; 81001; 82330; 82805; 83605; 83690; 84484; 85025; 87040; 87077; 87086; 87150; 87186; 87205; 87637; 93005; 96365; 96367; 99285; J2543; J7030; J7799; J9999